=== PATIENT | female | born 1965 | race Caucasian/White ===

== ENCOUNTER 2017-10-22 09:31 | Emergency (ER) | payer OTHER, BC ==
[2017-10-22] MEDS: ACETAMINOPHEN/HYDROcodone 325 MG/5 MG TAB PO (10:15)
== END 2017-10-22 11:00 | disposition home or self-care (01) ==
LOC: PHED 09:31
DX: S42.291A Other displaced fracture of upper end of right humerus, initial encounter for closed fracture (principal); W01.0XXA Fall on same level from slipping, tripping and stumbling without subsequent striking against object, initial encounter; E07.9 Disorder of thyroid, unspecified; F17.200 Nicotine dependence, unspecified, uncomplicated
CPT/HCPCS: 73030; 99283